=== PATIENT | female | born 2005 | race Caucasian/White ===

== ENCOUNTER 2025-07-16 12:14 | Emergency (ER) | payer OTHER, SELFPAY ==
[2025-07-16 12:33] VITALS: BP 125/62; PULSE 60; RESP 16; TEMP 36.4; O2SAT 98
--- NOTE | 2025-07-16 12:44 | ED.EXTPRO ---
HPI - Extremity Problem General Chief complaint: Extremity Problem,Nontraumatic Stated complaint: ingrown toenail patient presents to the [facility] accompanied by friend with complaints of pain, redness, and drainage from the left big toe. Patient noted the area became red and painful over the last week and believes she had an ingrown toenail with soaking this area and trying to take this out. Patient noted couple days ago did remove part of this nail and did have some cloudy colored drainage so has not touched that since then. Noted that the area feels better since then but concerned in unsure if she should be on antibiotics or have this looked at. Denies numbness, tingling, fever, chills, body aches. Related Data Home Medications ?Medication ?Instructions ?Recorded ?Confirmed ?Last Taken ?Type bupropion HCl 300 mg 24 hr tablet, mg PO 07/16/25 Unknown History extended release escitalopram oxalate 5 mg tablet mg 07/16/25 Unknown History norgestimate-ethinyl estradiol tablet 07/16/25 Unknown History 0.18mg/0.215mg/0.25mg-0.035mg(28)tablet Allergies Allergy/AdvReac Type Severity Reaction Status Date / Time No Known Allergies Allergy Verified 07/16/25 12:45 Review of Systems Constitutional: Constitutional: Reports as per HPI, Denies chills, Denies fatigue, Denies fever(s) and Denies weakness Eyes: Eyes: Reports no additional eye complaints ENT: Reports system reviewed and no additional complaints, except as documented Cardiovascular: Cardiovascular: Reports no additional cardiovascular complaints Respiratory: Respiratory: Reports no additional respiratory complaints Gastrointestinal: Gastrointestinal: Reports no additional gastrointestinal complaints Genitourinary: Genitourinary: Reports no additional female genitourinary complaints Musculoskeletal: Musculoskeletal: Reports as per HPI, Denies arthralgias, Reports joint swelling and Denies muscle cramps Integumentary/Breasts: Skin/Breast: Reports as per HPI, Reports erythema, Denies rash and Denies skin ulcer Neurologic: Reports as per HPI, Denies numbness and Denies weakness Psychiatric: Psychiatric: Reports no additional psychiatric complaints Endocrine: Endocrine: Reports no additional endocrine complaints Hematologic/Lymphatic: Hematologic/Lymphatic: Reports no additional hematologic/lymphatic complaints Allergic/Immunologic: Allergic/Immunologic: Reports no additional allergic/immunologic complaints Exam Const: General: healthy appearing and no acute distress Nutritional Appearance: well nourished Orientation/consciousness: patient oriented x3 Limitations: no limitations Resp: Effort & Inspection: normal respiratory effort Auscultation: clear to auscultation bilaterally Cardio: Rate: regular rate Rhythm: regular rhythm Skin: General skin exam: normal color Rashes: no rashes Wounds: no wounds Other: minimal erythema and swelling to medial side left great toenail, no obvious abscess, crusting, drainage noted. Neuro: General: patient oriented x3 and moves all extremities Speech: normal speech Gait exam (Neuro): Normal gait present Extrem: Left lower extremity: foot Details: normal capillary refill, normal to inspection, tenderness Location: of the great toe and toes with normal ROM; no unusual warmth, no abrasions, no lacerations and no ecchymosis Psych: Mental Status: mental status grossly normal Affect: normal affect Attitude: cooperative Course Course Level of Care: Express Care Visit Vital Signs Vital signs: Vital Signs Temperature 97.6 F 07/16/25 12:33 Pulse Rate 60 07/16/25 12:33 Respiratory Rate 16 07/16/25 12:33 Blood Pressure 125/62 07/16/25 12:33 Pulse Oximetry 98 07/16/25 12:33 Temperature 97.6 F 07/16/25 12:33 Pulse Rate 60 07/16/25 12:33 Respiratory Rate 16 07/16/25 12:33 Blood Pressure 125/62 07/16/25 12:33 Pulse Oximetry 98 07/16/25 12:33 MDM - Extremity (Nontraumatic) MDM Narrative Medical decision making narrative: No obvious ingrown toenail, likely paronychia. Will place patient on antibiotics continue compresses to the area The patient was evaluated by myself in the express care. History is obtained from patient who is an independent historian and physical exam was performed. Available medical records were reviewed at this time. Exam findings show no acute concerns or changes; patient is non-toxic appearing and is in no distress. Patient is appropriate for outpatient treatment and follow-up. I have evaluated and discussed social determinants of health with the patient that could potentially impact subsequent diagnosis and treatment plans. Differential diagnosis and treatment plan were discussed with the patient. Patient agrees with discussion and after shared medical decision making agrees with plan of care. All questions were answered to the patient's satisfaction. Differential Diagnosis Differential diagnosis: Likely herpes zoster, cellulitis, superficial thrombophlebitis, deep venous thrombosis of upper extremity, lower extremity edema and deep vein thrombosis of lower extremity Medical Records Attestation: I reviewed the patient's medical records. Discharge Plan Discharge Clinical Impression: Paronychia of great toe of left foot Patient Disposition: Home Condition: Stable Instructions: Antibiotic Form, Paronychia (ED) Additional Instructions: Clean with soap and water only; Avoid using alcohol and peroxide. Elevate the affected area if possible Alternate Tylenol/ibuprofen for as needed for pain Acetaminophen(Tylenol) 650-1000mg every 4-6hours with max of 4000mg/day. Nonsteroidal anti-inflammatory agent (NSAIDs-ibuprofen): 400mg every 4-6hours with max 2400mg/day Take antibiotic until it's gone. Please schedule a follow up visit with your personal physician for further evaluation and treatment within 3-5days OR if your symptoms persist, change or worsen significantly before you can contact your personal physician then please, without delay, go to the emergency department for further evaluation. Patient Language: [place] Prescriptions: New sulfamethoxazole-trimethoprim [Bactrim DS] 800-160 mg tablet 1 tablet PO Q12H Qty: 14 0RF No Action norgestimate-ethinyl estradiol 0.18/0.215/0.25 mg-0.035mg (28) tablet bupropion HCl 300 mg tablet extended release 24 hr PO escitalopram oxalate 5 mg tablet Follow-up/Referrals: PHYSICIAN NOT ON STAFF,NONSTAFF [Primary Care Provider] Time of Disposition: 12:46
== END 2025-07-16 12:48 | disposition home or self-care (01) ==
PROVIDERS: Emergency Provider Nurse Practitioner Family
DX: L03.032 Cellulitis of left toe (principal)
CPT/HCPCS: 99203; G0463